=== PATIENT | female | born 1950 | race Caucasian/White ===

== ENCOUNTER 2024-06-27 14:05 | Outpatient (CLI) | payer MEDICARE, OTHER ==
[~2024-06-27] VITALS: Ht 165.1 cm; Wt 88.5 kg
[2024-06-27 14:27] LABS: TOTAL HEMOGLOBIN 13.1 G/dl (12.0-16.0)
[2024-06-27] MEDS: albuterol 2.5 MG/3 ML nebule NEB ONE (15:06)
[2024-06-27 15:17] VITALS: PULSE 66; RESP 16; O2SAT 97
[2024-06-27 15:34] VITALS: PULSE 60; RESP 16
== END 2024-06-27 23:59 | disposition home or self-care (01) ==
LOC: RT 14:05
PROVIDERS: ATTEND Internal Medicine Pulmonary Disease
DX: J44.9 Chronic obstructive pulmonary disease, unspecified (principal)
CPT/HCPCS: 85018; 94060; 94727; 94729; 94760